=== PATIENT | male | born 1950 | race Caucasian/White ===

== ENCOUNTER 2018-08-31 10:22 | Outpatient (RCR) | payer OTHER | END 2018-09-23 | LOC: RESP 10:22 | PROVIDERS: ATTEND Internal Medicine Pulmonary Disease | DX: I27.0 Primary pulmonary hypertension (principal); R06.00 Dyspnea, unspecified; E11.42 Type 2 diabetes mellitus with diabetic polyneuropathy; R91.1 Solitary pulmonary nodule; I48.91 Unspecified atrial fibrillation | CPT/HCPCS: G0238 ×6; G0424 ×6 ==

== ENCOUNTER 2018-10-06 14:48 | Outpatient (RCR) | payer OTHER | END 2018-10-24 | LOC: RESP 14:48 | PROVIDERS: ATTEND Internal Medicine Pulmonary Disease | DX: R06.00 Dyspnea, unspecified (principal) | CPT/HCPCS: G0238 ×6; G0424 ×6 ==

== ENCOUNTER 2018-11-15 10:00 | Outpatient (RCR) | payer OTHER | END 2018-11-23 | LOC: RESP 10:00 | PROVIDERS: ATTEND Internal Medicine Pulmonary Disease | DX: R06.00 Dyspnea, unspecified (principal); I27.0 Primary pulmonary hypertension | CPT/HCPCS: G0238 ×8; G0424 ×8 ==

== ENCOUNTER 2018-12-22 10:00 | Outpatient (RCR) | payer OTHER | END 2018-12-24 | LOC: RESP 10:00 | PROVIDERS: ATTEND Internal Medicine Pulmonary Disease | DX: R06.00 Dyspnea, unspecified (principal); I27.0 Primary pulmonary hypertension | CPT/HCPCS: G0238 ×7; G0424 ×7 ==

== ENCOUNTER 2019-01-19 10:01 | Outpatient (RCR) | payer OTHER | END 2019-01-23 | disposition other institution, planned readmission (95) | LOC: RESP 10:01 | PROVIDERS: ATTEND Internal Medicine Pulmonary Disease | DX: R06.00 Dyspnea, unspecified (principal); I27.0 Primary pulmonary hypertension | CPT/HCPCS: G0238; G0424 ==

== ENCOUNTER 2019-02-14 10:00 | Outpatient (RCR) | payer OTHER | END 2019-02-23 | LOC: RESP 10:00 | PROVIDERS: ATTEND Internal Medicine Pulmonary Disease | DX: I27.0 Primary pulmonary hypertension (principal) | CPT/HCPCS: G0238 ×6; G0424 ×6 ==